=== PATIENT | female | born 1960 | race Caucasian/White ===

== ENCOUNTER → 2016-04-15 | Outpatient (CLI) | payer MEDICAID ==
--- NOTE | 2016-04-15 17:12 | US ---
Ultrasound of the Neck Soft Tissues History: R22.1, swelling left side of the neck, E78.2, G40.909. Technique: Longitudinal and transverse ultrasound imaging of the left neck soft tissues. Findings: In the left neck soft tissues at the juncture of the left side of the neck and shoulder reg ion ultrasound imaging was performed and demonstrates no evidence of discrete focal lesion. No fluid collection or cystic lesion is noted. IMPRESSION: 1. Palpable abnormality in the left neck/shoulder region demonstrates no ultrasound evidence of discr ete solid or cystic mass. 2. If palpable abnormality persists recommend additional imaging with either CT or MRI of the neck so ft tissues.
== END ==
LOC: CIMAGING 10:59
PROVIDERS: ATTEND Family Medicine
DX: R22.1 Localized swelling, mass and lump, neck (principal); E78.2 Mixed hyperlipidemia; G40.909 Epilepsy, unspecified, not intractable, without status epilepticus; N95.9 Unspecified menopausal and perimenopausal disorder
CPT/HCPCS: 76536-PO

== ENCOUNTER → 2016-07-02 | Outpatient (CLI) | payer MEDICAID | LOC: CIMAGING 14:08 | PROVIDERS: ATTEND Family Medicine | DX: R10.9 Unspecified abdominal pain (principal); N88.9 Noninflammatory disorder of cervix uteri, unspecified; Z87.442 Personal history of urinary calculi | CPT/HCPCS: 74176-PO ==

== ENCOUNTER → 2016-10-05 | Outpatient (CLI) | payer MEDICAID | LOC: FIMAGING 19:14 | PROVIDERS: ATTEND Family Medicine | DX: M22.41 Chondromalacia patellae, right knee (principal); M23.41 Loose body in knee, right knee ==

== ENCOUNTER 2017-02-12 14:39 | Emergency (ER) | payer MEDICAID ==
[2017-02-12 15:06] VITALS: BP 131/88; PULSE 78; RESP 14; TEMP 98.8; O2SAT 95
--- NOTE | 2017-02-12 15:48 | EDPHY ---
H & P Time Seen by Provider: 02/12/17 14:59 HPI/ROS: This patient complains of pain to the right hand/wrist area of the mid shaft of the 5th metacarpal rate heating into the wrist. She explains that she stepped oddly causing right knee pain and stumble with a FOOSH mechanism injury to her right upper extremity at 1:30 a.m. today. She has chronic right knee pains and reports that the mild pain in her right knee is no different from baseline for her. However she reports that the wrist/hand pain is 5/10 at baseline sharp in nature and worse with movement. She took ibuprofen shortly prior to arrival and thinks that that is starting to help with the severity. No other exacerbating factors and no other injuries. ROS: Neuro: No numbness or tingling associated with this injury Integumentary: No lacerations or abrasions Musculoskeletal: Chronic right knee pain as per HPI. No other acute injuries besides the wrist/hand. 5 point ROS is otherwise negative Past Medical/Surgical History: Epilepsy Chronic right knee pain and knee crepitance Social History: Patient occasionally uses marijuana. Rare alcohol. She is exposed to secondhand smoke but does not smoke herself. Smoking Status: Never smoked Physical Exam: Physical Exam Vital signs are normal. General: No acute distress HEENT: Atraumatic. Eyes: Pupils equal and react to light. Extraocular motions are intact. Lungs: No respiratory distress. Cardiac: Brisk capillary refill is intact throughout. Pulses are 2+ and symmetric in the affected extremity. Skin: No rash or pallor. Extremities: Atraumatic normal except for right wrist/hand that exam is notable for tenderness at the base of the 5th metacarpal without deformity that extends into the ulnar aspect of the wrist. She has no anatomical snuffbox tenderness, no other volar or dorsal wrist tenderness. No significant swelling. There is mild swelling to the affected area mentioned-ulnar aspect of wrist and 5th metacarpal. No lacerations or abrasions overlying this. Neuro: Alert with no sensorimotor deficits in the affected extremity. Initial differential diagnosis: 5th metacarpal fracture, wrist fracture, wrist sprain, contusion Constitutional: Initial Vital Signs Temperature (C) 37.1 C 02/12/17 14:58 Heart Rate 78 02/12/17 14:58 Respiratory Rate 14 02/12/17 14:58 Blood Pressure 131/88 H 02/12/17 14:58 O2 Sat (%) 95 02/12/17 14:58 O2 Delivery Mode Room Air Allergies/Adverse Reactions: erythromycin base [Erythromycin Base] Allergy (Intermediate, Verified 02/12/17 14:56) RASH VOMITING hydrocodone [Hydrocodone] Allergy (Intermediate, Verified 02/12/17 14:56) RASH, VOMITING oxycodone [Oxycodone] Allergy (Intermediate, Verified 02/12/17 14:56) RASH VOMITING phenytoin sodium [From Dilantin] Allergy (Verified 02/12/17 14:56) phenytoin sodium extended [From Dilantin] Allergy (Verified 02/12/17 14:56) all narcotics Allergy (Uncoded 02/12/17 14:56) Home Medications: Medication Instructions Recorded LEVETIRACETAM 02/12/17 VIMPAT 02/12/17 MDM/Departure - MDM Diagnostics: Three-view hand Hand x-ray reveals cortical abnormality at the ulnar aspect of the body of the hamate with minimal displacement appears consistent with an avulsion fracture of the hamate by my interpretation. I confirmed this with a consult to our radiologist Albino Prescott Imaging Results: Imaging Impressions Hand X-Ray 02/12/17 15:06 Impression: Small nondisplaced capitate cortical chip fracture. Findings reviewed with Emergency Department physician, Dr. Eliel Aldridge on February 12, 2017 at 1543 hours. Imaging: Discussed imaging studies w/ scallop dredger Radiologist ED Course/Re-evaluation: Ortho Glass splint-ulnar gutter placed by our tech with my supervision to the affected right upper extremity. Patient is neurovascularly intact post splint application. Counseled regarding splint and fracture care. Discussion: Patient with a hamate fracture without neurovascular compromise or other complications splinted with plan to follow up with Dr. Santana-the hand specialist on-call for Orthopedics. The patient declined any other analgesics while here in the emergency department - Depart Disposition: Home, Routine, Self-Care Clinical Impression: Closed hamate fracture Qualifiers: Encounter type: initial encounter Hamate bone location: body Fracture alignment : nondisplaced Laterality: right Qualified Code(s): S62.144A - Nondisplaced fracture of body of hamate [unciform] bone, right wrist, initial encounter for closed fracture Condition: Good Instructions: Wrist Fracture in Adults (ED) Additional Instructions: Diagnosis: Hamate fracture of wrist Plan: Keep the splint on at all times clean and dry Call Dr. santana-media relations specialist arrange follow-up appointment for sometime in the next 3-5 days for recheck and casting or a different splint. Ibuprofen Tylenol for pain as needed Return if you develop unbearable pain, numbness the does improve loosening of the John wrap or other concerns. Referrals: Danielle Nolasco DO [Primary Care Provider] - As per Instructions Rod Santana MD [Medical Doctor] - As per Instructions
== END 2017-02-12 16:12 | disposition home or self-care (01) ==
LOC: CED 14:39
DX: S62.144A Nondisplaced fracture of body of hamate [unciform] bone, right wrist, initial encounter for closed fracture (principal); X58.XXXA Exposure to other specified factors, initial encounter
CPT/HCPCS: 73130-PO; 80053-PO; 83655-90; 85025-PO; A4565

== ENCOUNTER → 2017-03-15 | Outpatient (CLI) | payer MEDICAID | LOC: CIMAGING 15:52 | PROVIDERS: ATTEND Family Medicine | DX: R06.02 Shortness of breath (principal) | CPT/HCPCS: 71020-PO ==

== ENCOUNTER → 2017-05-20 | Outpatient (CLI) | payer MEDICAID | LOC: CIMAGING 15:20 | PROVIDERS: ATTEND Family Medicine | DX: J40 Bronchitis, not specified as acute or chronic (principal); Z87.891 Personal history of nicotine dependence | CPT/HCPCS: 71046-PO ==